=== PATIENT | male | born 1970 | race Caucasian/White ===

== ENCOUNTER 2016-08-28 12:05 | Emergency (ER) | payer SELFPAY ==
[~2016-08-28] VITALS: Ht 177.8 cm; Wt 97.9 kg
[2016-08-28] MEDS ORDERED: MAALOX/HYOSCYAMINE/LIDOCAINE 45 ML BOTTLE ONE (12:44)
[2016-08-28] MEDS ORDERED: ASPIRIN 81 MG TABLET CHEW ONE (12:44)
[2016-08-28 12:57] LABS: HEMOGLOBIN 15.5 g/dL (13.7-18.0)
[2016-08-28] MEDS ORDERED: MAALOX/HYOSCYAMINE/LIDOCAINE 45 ML BOTTLE PO ONE (13:00)
[2016-08-28] MEDS ORDERED: ASPIRIN 81 MG TABLET CHEW PO ONE (13:00)
[2016-08-28 13:05] LABS: ASPARTATE AMINO TRANSFERASE 24 U/L (15-37); BLOOD UREA NITROGEN 14 mg/dL (7-18)
[2016-08-28 13:16] LABS: IS PT STATUS REG ER OR PRE ER? YES
[2016-08-28 13:36] VITALS: BP 140/90
== END 2016-08-28 13:49 | disposition home or self-care (01) ==
LOC: ED 12:56
DX: R07.9 Chest pain, unspecified (principal); I10 Essential (primary) hypertension; E78.00 Pure hypercholesterolemia, unspecified
CPT/HCPCS: 36415; 71010; 80053; 83690; 83880; 84484; 85025; 93005